=== PATIENT | male | born 1960 | race Caucasian/White ===

== ENCOUNTER 2024-03-01 17:25 | Inpatient (IN) | payer MEDICARE, OTHER, MEDICAID, SELFPAY ==
[2024-03-01 10:17] VITALS: BP 142/87
--- NOTE | 2024-03-01 10:54 | ED.GENMED ---
History of Present Illness
General
Chief Complaint: Crisis Evaluation
Source: patient
Exam Limitations: none
Time Seen by Provider: 03/01/24 10:51
Nursing documentation reviewed up to this point in time: agreed with
History of Present Illness
History of Present Illness:
Patient is 63-year-old male with history of schizophrenia. Patient is a resident of the [facility]. It is documented that he does have a history of reflux. Staff reports that patient was complaining of chest and epigastric
pain yesterday and only had cereal in the morning and refused to eat since. Patient tells me it feels like reflux and he did vomit because of this. It is documented that he does have a history of reflux and is on omeprazole 40 mg once by mouth
every day before breakfast.
Patient denies symptoms now. Patient has no cardiac history . Denies any shortness of breath.
Past History
Past History
ED Past Medical History: Psychiatric (schizophrenia) and Other (Borderline diabetes, GERD, schizoaffective disorder)
ED Past Surgical History: None
Social History
Tobacco: Smoker
Alcohol: None
Drug: None
Personal: Single
Living: other (halfway)
Employment: Not employed
Family History
Family History: CAD
Review of Systems
Review of Systems
Allergies reviewed?: Yes
Other source history: other (Staff from facility )
All Other Systems: ROS reviewed and negative except as documented in HPI and ROS
Constitutional: Reports no symptoms
Respiratory: Denies trouble breathing
Cardiac: Reports other (chest /epigastric pain yesterday now resolved )
ABD/GI: Reports abdominal pain (epigastric pain n/v/ x 1 yesterday ) and vomiting
: Reports no symptoms
Musculoskeletal: Reports no symptoms
Phy Exam
General Physical Exam
General Presentation: no apparent distress
General age: appears stated age
General Skin: warm and dry
General Habitus: normal
General Mental: alert
General Hydration: appears well hydrated
Cardiovascular Exam
Cardiovascular Exam: regular rate/rhythm, no murmur and normal peripheral pulses
Pulmonary Exam
Pulmonary Exam: lungs clear and no respiratory distress
Neurological Exam
Neurological Exam: alert and oriented x3
Musculoskeletal Exam
Musculoskeletal Exam: full ROM
Skin Exam
Skin Exam: normal color and warm/dry
Psychiatric Exam
Psychiatric Exam: anxious
Course
Orders/Labs/Results
Orders:
Orders
03/01/24 10:20
Electrocardiogram (*1) Urgent
Reason for Study: Abdominal Pain
03/01/24 10:21
EKG- Treatment ONCE
03/01/24 11:00
Cardiac Monitoring- Treatment ONCE
IV Insert/Care/Rem.- Treatment PRN
CR Chest - 2 Views Urgent
Comment:
Reason For Exam: cp
03/01/24 11:33
Complete Blood Count/With Diff Urgent
Comprehensive Metabolic Panel Urgent
Serum Osmolality Urgent
Comment: ADD ON
Troponin I Urgent
03/01/24 12:42
Add On- LAB Urgent
Tests Added?: serum osmolality
03/01/24 12:43
UA Reflex to Culture [Urinalysis Reflex To Culture] Urgent
Date Specimen was Collected: 03/01/24
Time Specimen was Collected: 12:54
Urine Osmolality Random [Osmolality, Random Urine] Urgent
Date Specimen was Collected: 03/01/24
Time Specimen was Collected: 12:54
Urine Sodium Urgent
Date Specimen was Collected: 03/01/24
Time Specimen was Collected: 12:54
Abnormal Lab Results
03/01/24
11:33
RBC 4.26 L 10^6/uL
(4.70-6.10)
Hct 36.5 L %
(39.0-52.0)
MCH 31.7 H pg
(27.0-31.0)
Absolute Lymphs (auto) 1.0 L 10^3/uL
(1.2-3.4)
Neutrophils % 77.4 H %
(42.2-75.2)
Lymphocytes % 13.4 L %
(20.5-51.1)
Sodium 121 L mmol/L
(135-145)
Chloride 87 L mmol/L
(98-107)
BUN 8 L mg/dl
(9-20)
Creatinine 0.5 L mg/dL
(0.7-1.3)
03/01/24 11:33
03/01/24 11:33
Vital Signs
Initial and Last Documented VS:
Initial Vital Signs
Temp Pulse Resp BP Pulse Ox
97.7 F 87 17 142/87 99
03/01/24 10:17 03/01/24 10:17 03/01/24 10:17 03/01/24 10:17 03/01/24 10:17
Last Documented Vital Signs
Temp Pulse Resp BP Pulse Ox
97.7 F 99 18 143/88 98
03/01/24 10:17 03/01/24 12:33 03/01/24 12:33 03/01/24 12:33 03/01/24 12:33
MDM/Problems Addressed
Differential Diagnosis Includes:
Not limited to reflux, less likely unstable angina
MDM/Problems Addressed:
Patient is a 63-year-old male from local detention sent for staff for evaluation. Patient complained of reflux, chest discomfort yesterday and only had a bowl of cereal but did not eat throughout the day. Patient arrives awake alert he has no
complaints presently. No acute findings on EKG cardiac troponin negative however incidentally patient was found to have a low sodium of 121. This is new in comparison to prior labs. no c/o of fever/chills. neg chest xray. neg troponin no acute
findings on EKG.
Staff reports that pt drinks a lot of water.
Discussed with Dr. Dodd who eval pt. pt is very restless pulled IV line out. new IV ordered. per nephrology will hold off on hypertonic saline. water restrict and diet.
*Radiology
Radiology exam reviewed: radiology read reviewed
*Pulse Oximetry
Patient hypoxic: no
*EKG
Interpreted by ED Provider?: Yes
Interpretation: normal
Comparison EKG: no comparison EKG present
Heart Rate: 99
Rate: normal
Rhythm: sinus
Ischemia: non-specific ST changes
*Critical Care Note
Total Time (30-74mins, 75-104mins- exclusive of procedures): Not Applicable
Patient Management
Discussion with other providers: Product Demonstrator (Dr Dodd )
ED Attending Note
-
Portions of this chart may have been created with voice recognition software.� Occasional wrong word or��sound alike� substitutions may have occurred due to the inherent limitations of voice recognition software.
Discharge Plan
Departure
Patient Disposition: Admit
Date of Disposition: 03/01/24
Time of Disposition: 13:30
Admit to: Telemetry
Admit to doctor: hospitalist
Presentation/result/management discussed w/ accepting MD/DO: Hospitalist
Patient with high blood pressure during this ER visit?: Yes
Condition: Fair
Covid-19: Not Applicable
Discharge Problem:
Chest pain, Acute hyponatremia
Prescriptions:
No Action
famotidine [Acid Controller] 20 MG tablet
20 mg PO DAILY
olanzapine [Zyprexa] 20 MG tablet
20 mg PO QPM
olanzapine [Zyprexa] 20 MG tablet
10 mg PO DAILY
buspirone [BuSpar] 15 MG tablet
15 mg PO BID
lorazepam 1 MG tablet
1 mg PO BID PRN (Reason: anxiety)
Referrals:
Porrino,Jaylon., DO [Family Provider] -
Interventions
Interventions:
*Risk Screen - Suicide Last Done: 03/01/24 11:21
*General Assessment Last Done: 03/01/24 11:21
*Neglect/Abuse Screening Last Done: 03/01/24 11:21
ED- Fall Risk Assessment Last Done: 03/01/24 11:23
*ED COVID-19 Vaccine History Last Done: 03/01/24 11:21
ED-Psychological Assessment Last Done: 03/01/24 11:23
Discharge Date and Time
Print Language: TONGAN
[2024-03-01 11:46] LABS: % Basophils 0.3 % (0-2); % Eosinophils 0.4 % (0-6); % Immature Granulocytes 0.3 % (0-0.5); % Lymphocytes 13.4 % (20.5-51.1); % Monocytes 8.2 % (1.7-9.3); % Neutrophils 77.4 % (42.2-75.2); Absolute Monocytes 0.6 10^3/uL (0.1-0.6); Absolute Neutrophils 5.7 10^3/uL (1.4-6.5); Hematocrit 36.5 % (39.0-52.0); Hemoglobin 13.5 g/dL (13.0-18.0); Mean Corpuscular Hgb 31.7 pg (27.0-31.0); Mean Corpuscular Volume 85.7 fL (80.0-94.0); Mean Platelet Volume 10.2 fL (7.4-10.4); Nucleated Red Blood Cells % 0 % (-); Platelet Count 316 10^3/uL (130-400); Red Blood Cell Count 4.26 10^6/uL (4.70-6.10); Red Cell Dist. Width 11.7 % (11.5-14.5); White Blood Cell Count 7.4 10^3/uL (4.8-10.8)
[2024-03-01 12:02] LABS: ALT (SGPT) 20 U/L (0-50); AST (SGOT) 33 U/L (17-59); Albumin 4.7 g/dl (3.5-5.0); Alkaline Phosphatase 91 U/L (38-126); Blood Urea Nitrogen 8 mg/dl (9-20); Calcium 9.3 mg/dl (8.4-10.2); Carbon Dioxide 24 mmol/L (22-30); Chloride 87 mmol/L (98-107); Glucose 92 mg/dl (70-99); Potassium 4.1 mmol/L (3.5-5.1); Sodium 121 mmol/L (135-145); Total Bilirubin 1.1 mg/dl (0.2-1.3); Total Protein 6.6 g/dl (6.3-8.2); eGFR > 60.00
[2024-03-01 12:09] LABS: Troponin I < 0.012 ng/ml
[2024-03-01 12:33] VITALS: BP 143/88
--- NOTE | 2024-03-01 13:27 | W.CON.NEPH ---
Consultation
-
Date/Time Consultation Requested: March 01, 2024 12 PM
Date/Time Consultation Performed: March 01, 2024 1 PM
Requesting Provider: Dr. Armenta
Performing Provider: Dr. Dodd
Medical History
-
Chief Complaint: Chest pain refusal to eat
History of Present Illness:
This is a 63-year-old gentleman who has schizophrenia on multiple medications. He resides at [facility]. In the last 6 months he began having reflux symptoms. He had taken Maalox and other [id number] treatments which are
only modestly helped. This had apparently worsened yesterday with some more chest pain and he had then refused to eat since that point. His last documented food was some cereal yesterday morning. He does drink a lot of water per day on a typical
basis according to the staff he drinks close to 5 or 6 L/day. The patient is unable to quantify how much fluid he drinks. Because of his current symptoms and refusal to eat he was brought to the emergency room for evaluation. Here his sodium
level was noted to be 121. He did pull his IV out while in the emergency room. He was pacing in the room when he was seen.
Past Medical History
Schizophrenia
Reflux
Social History
Tobacco: Smoker
Alcohol: None
Family History
Family History: Not Pertinent and CAD
Allergies / Home Medications
Allergy/AdvReac Type Severity Reaction Status Date / Time
clozapine Allergy Unknown Verified 03/01/24 10:19
fluphenazine enanthate Allergy Unknown Verified 03/01/24 10:19
[From Prolixin]
fluphenazine HCl Allergy Unknown Verified 03/01/24 10:19
[From Prolixin]
haloperidol [From Haldol] Allergy drooling Verified 03/01/24 10:19
haloperidol lactate Allergy drooling Verified 03/01/24 10:19
[From Haldol]
�Medication �Instructions �Recorded �Confirmed �Type
buspirone 15 mg tablet (BuSpar) 15 mg PO BID 09/04/20 09/04/20 History
famotidine 20 mg tablet (Acid 20 mg PO DAILY 09/04/20 09/04/20 History
Controller)
lorazepam 1 mg tablet 1 mg PO BID PRN anxiety 09/04/20 History
olanzapine 20 mg tablet (Zyprexa) 10 mg PO DAILY 09/04/20 09/04/20 History
olanzapine 20 mg tablet (Zyprexa) 20 mg PO QPM 09/04/20 09/04/20 History
Review of Systems
-
Reflux, epigastric discomfort
All other systems: Negative unless noted
Physical Exam
Vital Signs
Vital Signs
Temp Pulse Resp BP Pulse Ox
97.7 F 99 18 143/88 98
03/01/24 10:17 03/01/24 12:33 03/01/24 12:33 03/01/24 12:33 03/01/24 12:33
Lab Results
WBC 7.4 10^3/uL (4.8-10.8) 03/01/24 11:33
RBC 4.26 10^6/uL (4.70-6.10) L 03/01/24 11:33
Hgb 13.5 g/dL (13.0-18.0) 03/01/24 11:33
Hct 36.5 % (39.0-52.0) L 03/01/24 11:33
Plt Count 316 10^3/uL (130-400) 03/01/24 11:33
Sodium 121 mmol/L (135-145) L 03/01/24 11:33
Potassium 4.1 mmol/L (3.5-5.1) 03/01/24 11:33
Chloride 87 mmol/L (98-107) L 03/01/24 11:33
Carbon Dioxide 24 mmol/L (22-30) 03/01/24 11:33
BUN 8 mg/dl (9-20) L 03/01/24 11:33
Creatinine 0.5 mg/dL (0.7-1.3) L 03/01/24 11:33
eGFR > 60.00 03/01/24 11:33
Glucose 92 mg/dl (70-99) 03/01/24 11:33
Calcium 9.3 mg/dl (8.4-10.2) 03/01/24 11:33
Albumin 4.7 g/dl (3.5-5.0) 03/01/24 11:33
Physical Exam
Patient is awake alert oriented and in no distress. Mood and affect were pleasant, insight and judgment were good. Pupils are equal round and reactive to light, extraocular movements are intact, sclera were anicteric. Hearing was normal, ears and
nose are intact. Oropharynx was clear. Neck was supple with trachea midline and no thyromegaly. Heart was regular rate and rhythm without rubs. Lower extremities without edema. Lungs were clear to auscultation bilaterally and with normal
excursion. Abdomen was soft, nontender, with normal active bowel sounds, and no hepatosplenomegaly. Skin was without rash and with normal turgor.
Data Reviewed
-
Medical Tests (Nuc Med, Echo etc): Image Personally Visualized and interpreted (EKG on 03/01/2024 by my read shows normal sinus rhythm septal Q nonspecific T wave lateral)
Labs: Labs Reviewed by me (Hemoglobin 13.5, sodium 121, chloride 87, creatinine 0.5)
Old Records: Reviewed (On January 29, 2021 sodium 137)
Assessment/Plan
-
Assessment
Hyponatremia
Schizophrenia
Reflux
Poor oral intake
Plan
Fluid restriction 48 ounces per day
Increase solute intake
If necessary can use salt tablets
I do not believe he will tolerate maintain IV for hypertonic saline
Await urine studies if he will provide it
Follow BMP
Discussed with accompanying staff from his facility.
[2024-03-01 14:07] LABS: Osmolality Serum 251 mOsm/kg (275-300)
[2024-03-01] MEDS: ATIVAN 0.5 MG IV (14:14)
--- NOTE | 2024-03-01 16:52 | CM ---
Patient seen at bedside with physician, patient mother and caregiver. Patient states that he lives at [facility] and per caregiver he smokes daily. Patient mother indicated that patient has been there since 08/25/23 and that he plans to return.
Patient is independently ambulatory and uses no assistive devices. Patient does not normally have a 1:1 at the facility but he does like to keep moving/walking. Patient PCP is Dr. Flood and he uses the [facility] pharmacy. CM will try to reach
[facility] for clarification of prior level of care. Patient caregiver stated he would come to take patient home when discharged. CM will continue to follow for discharge planning needs.
Plan; home with VN to [facility] vs home with no needs.
--- NOTE | 2024-03-01 17:02 | HPS.HSE ---
Addendum entered and electronically signed by Denice Neri MD 03/01/24 19:58:
I personally performed a history and physical exam of the patient and discussed management with the resident. I reviewed the resident's note and agree with the documented findings and plan of care HPI/CC as noted by Dr. Mullen.
GENERAL: thin cachectic male in no apparent distress
HEENT: NC/AT
HEART: regular rate and rhythm, +S1, +S2
LUNGS : clear to auscultation bilaterally
ABDOM: soft, nontender, nondistended, + bowel sounds
EXT: no cyanosis, clubbing, or edema
NEUROLOGIC: grossly intact--pacing about the room unable to sit still
PSYCH: calm, answered questions--pacing about the room, cannot sit still
midepigastric abdominal pain--likely GERD symptoms, doubt pancreatitis or cholelithiasis/biliary colic, doubt anginal equivalent--ADMIT--troponin and EKG WNL--check lipase--cont PPI--consult GI
hyponatremia--appears euvolemic--likely SIADH (possibly from psych meds) BUT could be water intoxication with pt drinking only water sometimes up to 15 bottles per day (500ml bottles)--consult renal-check urine and serum osmolality, check urine
sodium--fluid restriction to 48 oz and hold on hypertonic saline for now
schizophrenia -- calm--no behaviors--cont seroquel, haldol--consider psych consult
smoking--12 cigs/day--nicotine patch
DVT proph--low risk, ambulating
code status -- FULL CODE
Original Note:
Family Physician
-
Family Physician: Angel Villegas
Chief Complaint
-
Epigastric pain, nonbloody vomiting, limited oral intake
History of Present Illness
Patient lives in facility [facility]]; source of history: patient, caregiver, patient's mother.
Last documented food was yesterday when he had cereal for breakfast. After that he had an episode of nonbloody vomiting (throwing up mainly fluids) and stared having epigastric pain from that time. His pain did not radiate, was not positional or
exertional, was not associated with difficulty breathing but got worse with eating. He does not report chills or cold sweats since yesterday. His last bowel movement was yesterday which was not bloody. After his vomiting he did not have oral
intake. He does report a history of reflux from 6 months ago which he has been taking Maalox and OTC drugs with slight improvement. Patient's mother reports increased frequency of urinating from about a month ago and drinking a lot of water which
sometimse goes up to 10-15 small bottles of water.
Medical History
Past Medical History
Past Medical History: Reports GERD and Psychiatric (Schizophrenia)
Past Surgical History: Reports None
Social History
Tobacco: Smoker
Alcohol: None
Drug: None
Living: Assisted Living
Employment: Not Employed
Family History
Family History: CAD
Allergies / Home Medications
Allergies reflects when Allergies were last updated in [facility].
Home Medications with original date entered in [facility]
Allergy/Medication List:
Allergies: Clozapine, fluphenazine
Medications: Buspirone, famotidine, lorazepam, olanzapine, quetiapine, Haldol, trazodone
Review of Systems
-
History Source: Patient, Family and Other
A 12 point ROS was completed and negative except as noted: Yes
Abdomen/GI: Reports Abdominal Pain, Vomiting and Anorexia
: Reports Frequency
Musculoskeletal: Reports Muscle Pain
Endocrine: Reports Polyuria and Polydipsia
Physical Exam
Vital Signs
Vital Signs
Temp Pulse Resp BP Pulse Ox
97.7 F 99 20 143/88 98
03/01/24 10:17 03/01/24 12:33 03/01/24 14:10 03/01/24 12:33 03/01/24 12:33
Physical Exam
General: Well Developed and Well Nourished
HEENT: NormoCephalic and Moist mucous membranes
Respiratory: Clear
Cardiac: S1/S2 and Regular Rhythm
GI: Soft, Non Tender, Non Distended, Normal Bowel Sounds and No Hepatosplenomegaly
Rectal: Brown
Genito-urinary: No costovertebral tender
Musculoskeletal: No Clubbing, No Cyanosis and No Edema
Skin: Warm and Dry
Neuro: Awake, Alert, Oriented, No Motor Deficits and No Sensory Deficits
Hematologic/Lymphatic: No Lymphadenopathy
Psych: Agitated
Laboratory Results
-
03/01/24 11:33
03/01/24 11:33
Laboratory Results
Total Bilirubin 1.1 mg/dl (0.2-1.3) 03/01/24 11:33
AST 33 U/L (17-59) 03/01/24 11:33
ALT 20 U/L (0-50) 03/01/24 11:33
Alkaline Phosphatase 91 U/L (38-126) 03/01/24 11:33
Troponin I < 0.012 ng/ml 03/01/24 11:33
Data Reviewed
-
Critical Care Time (in minutes): 90
Impression/Plan
-
IMPRESSION:
Problem #1: Assess possibility of stable Angina--- EKG done in ED: normal, troponin negative
Problem #2: Assess possibility of pancreatitis
Problem #3: GERD
Problem #3: Euvolemic hyponatremia
Problem #4: Smoking
PLAN:
Check lipase
Start Hypertonic (3%) saline
Limit fluids
I/O every 12 hours
Blood chemistry every 4 hours
Renal consult
GI consult
Urine culture pending
Urine analysis pending
Urinary sodium, urine osmolality pending
Nicotine patch
OT PT consult
Consider Medsitter
Possibly consider psych consult
--- NOTE | 2024-03-01 17:33 | CON.GI ---
Consultation
-
Date/Time Consultation Performed: 02/29/24
Performing Provider: Gianluca Villaseñor MD
Reason for Consultation: abdominal pain
Medical History
Chief Complaint / HPI
Chief Complaint: abdominal pain
History of Present Illness:
The patient is a 63-year-old male with past medical history as noted who presents to the emergency room with pain with eating. The history is obtained with him and his mother. Longstanding history of schizophrenia, and by report heartburn. By
report he has been having discomfort after eating, and had episode of vomiting, and since then has declined to eat. He is tolerating his secretions without difficulty. He denies any exertional symptoms. He denies any fevers or chills. The
history is somewhat difficult, though per his mother his food intake has been different given his mentation. He does drink a lot of water, sometimes up to 10-15 small bottles of water a day. Upon presentation he was found to be significantly
hyponatremic.
Past Medical History
Past Medical History: Other (Schizophrenia Reflux)
Social History
Tobacco: Smoker
Alcohol: None
Family History
Family History: Reviewed & Not Pertinent
Allergies / Home Medications
Allergy/AdvReac Type Severity Reaction Status Date / Time
clozapine Allergy Unknown Verified 03/01/24 10:19
fluphenazine enanthate Allergy Unknown Verified 03/01/24 10:19
[From Prolixin]
fluphenazine HCl Allergy Unknown Verified 03/01/24 10:19
[From Prolixin]
haloperidol [From Haldol] Allergy drooling Verified 03/01/24 10:19
haloperidol lactate Allergy drooling Verified 03/01/24 10:19
[From Haldol]
�Medication �Instructions �Recorded
acetaminophen 500 mg tablet 1,000 mg PO TIDPRN PRN mild pain 03/01/24
(Tylenol Extra Strength)
aluminum-mag hydroxide-simethicone 15 ml PO DAILYPRN PRN gerd 03/01/24
200 mg-200 mg-20 mg/5 mL oral susp
(Laura-Lanta)
benztropine 1 mg tablet 1 mg PO BID 03/01/24
calcium polycarbophil 625 mg 635 mg PO BID 03/01/24
tablet (Fiber-Lax)
cholecalciferol (vitamin D3) 25 25 mcg PO DAILY 03/01/24
mcg (1,000 unit) tablet (Vitamin
D3)
haloperidol 5 mg tablet 5 mg PO BID 03/01/24
hydroxyzine HCl 50 mg tablet 50 mg PO BIDPRN PRN anxiety 03/01/24
omeprazole 40 mg capsule,delayed 40 mg PO DAILY 03/01/24
release
polyethylene glycol 3350 17 gram 17 g PO DAILYPRN PRN constipation 03/01/24
oral powder packet (Miralax)
quetiapine 300 mg tablet (Seroquel) 600 mg PO HS 03/01/24
quetiapine 50 mg tablet 50 mg PO BID 03/01/24
quetiapine 50 mg tablet (Seroquel) 50 mg PO BIDPRN PRN anxiety 03/01/24
trazodone 100 mg tablet 100 mg PO HS 03/01/24
Review of Systems
-
All other systems: A 12 pt ROS was Negative except as stated above in HPI
Vital Signs
Temp Pulse Resp BP Pulse Ox
97.7 F 99 20 143/88 98
03/01/24 10:17 03/01/24 12:33 03/01/24 14:10 03/01/24 12:33 03/01/24 12:33
Physical Exam
Results
WBC 7.4 10^3/uL (4.8-10.8) 03/01/24 11:33
Hgb 13.5 g/dL (13.0-18.0) 03/01/24 11:33
Hct 36.5 % (39.0-52.0) L 03/01/24 11:33
MCV 85.7 fL (80.0-94.0) 03/01/24 11:33
Plt Count 316 10^3/uL (130-400) 03/01/24 11:33
Absolute Neuts (auto) 5.7 10^3/uL (1.4-6.5) 03/01/24 11:33
Sodium 121 mmol/L (135-145) L 03/01/24 11:33
Potassium 4.1 mmol/L (3.5-5.1) 03/01/24 11:33
Chloride 87 mmol/L (98-107) L 03/01/24 11:33
Carbon Dioxide 24 mmol/L (22-30) 03/01/24 11:33
BUN 8 mg/dl (9-20) L 03/01/24 11:33
Creatinine 0.5 mg/dL (0.7-1.3) L 03/01/24 11:33
Calcium 9.3 mg/dl (8.4-10.2) 03/01/24 11:33
Total Bilirubin 1.1 mg/dl (0.2-1.3) 03/01/24 11:33
AST 33 U/L (17-59) 03/01/24 11:33
ALT 20 U/L (0-50) 03/01/24 11:33
Alkaline Phosphatase 91 U/L (38-126) 03/01/24 11:33
Diagnostic Image Results:
Prior GI Procedures:
EGD:
Colonoscopy:
Assessment / Plan
-
1. Epigastric pain: With underlying history of heartburn, and some dyspeptic symptoms, less likely biliary colic, again difficult to quantify given his history. His exam is benign, as well as labs except for significant hyponatremia. At this
point we will continue supportive care, PPI. Will check ultrasound again biliary colic seems less likely. Pending his clinical course may plan EGD on Wednesday if no changes. I discussed this with his mother at length.
-
-
Thank you for consultation and allowing me to participate in the patient's care. Please call the agronomy professor GI physician during the after hours with any questions or concerns.
[2024-03-01 17:45] VITALS: BMI 19.5
[2024-03-01 17:58] VITALS: BP 139/82
[2024-03-01 19:00] VITALS: BP 130/78
[2024-03-01 19:21] LABS: Blood Urea Nitrogen 9 mg/dl (9-20); Calcium 9.4 mg/dl (8.4-10.2); Carbon Dioxide 27 mmol/L (22-30); Chloride 88 mmol/L (98-107); Estimated Creatinine Clearance 107 ml/min; Glucose 107 mg/dl (70-99); Potassium 3.8 mmol/L (3.5-5.1); Sodium 124 mmol/L (135-145); eGFR > 60.00
[2024-03-01] MEDS: COGENTIN 1 MG PO (20:51)
[2024-03-01] MEDS: SEROQUEL 600 MG PO (20:51)
[2024-03-01] MEDS: HALDOL 5 MG PO (20:51)
[2024-03-01] MEDS: DESYREL 100 MG PO (20:51)
[2024-03-01] MEDS: FIBERCON 625 MG PO (20:52)
[2024-03-01] MEDS: SEROQUEL 50 MG PO (20:52)
[2024-03-01 22:04] LABS: Blood Urea Nitrogen 10 mg/dl (9-20); Calcium 9.3 mg/dl (8.4-10.2); Carbon Dioxide 27 mmol/L (22-30); Chloride 91 mmol/L (98-107); Estimated Creatinine Clearance 107 ml/min; Glucose 115 mg/dl (70-99); Potassium 3.7 mmol/L (3.5-5.1); Sodium 125 mmol/L (135-145); eGFR > 60.00
[2024-03-01 22:42] LABS: Urine Albumin Negative (Neg - Trace); Urine Bilirubin Negative (Negative); Urine Character Clear (Clear); Urine Color Yellow; Urine Glucose Negative (Negative); Urine Ketone 1+ (Negative); Urine Leukocyte Negative (Negative); Urine Nitrite Negative (Negative); Urine Occult Blood Negative (Negative); Urine Urobilinogen Negative (Neg - 1+)
[2024-03-01 22:49] LABS: Osmolality Urine 171 mOsm/kg (300-900)
[2024-03-01 23:00] VITALS: BP 106/57
[2024-03-01 23:11] LABS: Urine Sodium 5 mmol/L (30-90)
[2024-03-02 03:00] VITALS: BP 111/70
[2024-03-02 06:00] VITALS: BMI 18.9
[2024-03-02 07:39] LABS: Hematocrit 37.6 % (39.0-52.0); Hemoglobin 13.6 g/dL (13.0-18.0); Mean Corp Hgb Conc. 36.2 g/dL (33.0-37.0); Mean Corpuscular Hgb 31.6 pg (27.0-31.0); Mean Corpuscular Volume 87.4 fL (80.0-94.0); Mean Platelet Volume 10.1 fL (7.4-10.4); Platelet Count 274 10^3/uL (130-400); Red Cell Dist. Width 11.8 % (11.5-14.5); White Blood Cell Count 4.7 10^3/uL (4.8-10.8)
[2024-03-02 07:49] VITALS: BP 104/61
[2024-03-02 07:57] LABS: ALT (SGPT) 19 U/L (0-50); AST (SGOT) 34 U/L (17-59); Albumin 4.3 g/dl (3.5-5.0); Alkaline Phosphatase 74 U/L (38-126); Blood Urea Nitrogen 7 mg/dl (9-20); Calcium 9.3 mg/dl (8.4-10.2); Carbon Dioxide 30 mmol/L (22-30); Chloride 96 mmol/L (98-107); Estimated Creatinine Clearance 104 ml/min; Glucose 87 mg/dl (70-99); Lipase 62 U/L (23-300); Magnesium 2.1 mg/dl (1.6-2.3); Sodium 132 mmol/L (135-145); Total Protein 6.2 g/dl (6.3-8.2); eGFR > 60.00
--- NOTE | 2024-03-02 08:05 | W.PN.GI.CBS2 ---
Today's Communication / Plan
-
Please see assessment and plan for details.
Assessment / Plan
-
1. Epigastric pain: With underlying history of heartburn, and some dyspeptic symptoms, less likely biliary colic, again difficult to quantify given his history, questionable dysphagia/odynophagia also. His exam is benign, as well as labs except
for significant hyponatremia which is improved. At this point we will continue supportive care, PPI. Will await ultrasound again biliary colic seems less likely. Will plan EGD tomorrow. I discussed this with his mother at length yesterday.
Subjective
Subjective
Date of Service: March 02, 2024
Patient feeling okay, denies any abdominal pain, states ate dinner, which was confirmed with nursing.
Objective
Data Reviewed
Laboratory Data:
Laboratory Results
03/02/24 07:02
03/02/24 07:02
Laboratory Results
Magnesium 2.1 mg/dl (1.6-2.3) 03/02/24 07:02
Total Bilirubin 1.0 mg/dl (0.2-1.3) 03/02/24 07:02
AST 34 U/L (17-59) 03/02/24 07:02
ALT 19 U/L (0-50) 03/02/24 07:02
Alkaline Phosphatase 74 U/L (38-126) 03/02/24 07:02
Lipase 62 U/L (23-300) 03/02/24 07:02
Vital Signs and I&O:
Vital Signs
Temp Pulse Resp BP Pulse Ox
97.5 F 99 16 104/61 95
03/02/24 07:49 03/02/24 07:49 03/02/24 07:49 03/02/24 07:49 03/02/24 07:49
Physical Exam
Physical Exam
General: NAD
Abdomen: normal bowel sounds, soft, no tenderness, no masses or bruits, no ascites
[2024-03-02 08:26] LABS: TSH 1.14 uIU/ml (0.47-4.68)
[2024-03-02] MEDS: NICODERM TRANSDERMAL 14 MG TRANSDERM (08:35)
[2024-03-02] MEDS: HALDOL 5 MG PO ×2 (08:35→20:55)
[2024-03-02] MEDS: COGENTIN 1 MG PO ×2 (08:35→20:55)
[2024-03-02] MEDS: VITAMIN D3 (cholecalciferol) 25 MCG PO (08:35)
[2024-03-02] MEDS: FIBERCON 625 MG PO ×2 (08:35→20:55)
[2024-03-02] MEDS: SEROQUEL 50 MG PO ×2 (08:35→20:55)
[2024-03-02] MEDS: PROTONIX 40 MG PO (08:35)
--- NOTE | 2024-03-02 10:28 | PTCARENOTE ---
Dr Neri aware that pt continues to take himself off of the security monitor. Stated tele can be removed and she will place an order for med surg. Med sitter continues at bedside. Pt OOB walking around room but does not come out in to the
hallway. Pt denies pain. Call crawford in reach.
[2024-03-02 11:03] VITALS: BMI 18.9
--- NOTE | 2024-03-02 11:51 | W.PN.NEPH.PH ---
Today's Communication / Plan
-
sodium up to 132
maintain fluid restriction
Assessment/Plan
-
Assessment
Hyponatremia
Schizophrenia
Reflux
Poor oral intake
Plan
Fluid restriction 48 ounces per day
Increase solute intake
sodium up to 132
If necessary can use salt tablets
I do not believe he will tolerate maintain IV for hypertonic saline
urine osm of 171 not consistent with SIADH, likely due to poor solute intake and fluid ingestion
Follow BMP
Discussed with accompanying staff from his facility.
-
-
Date of Service: March 02, 2024
CC / HPI / ROS
-
Chief Complaint:
Hyponatremia
History of Present Illness:
sodium up to 132 with FR
ghemodynamically stable
Review of Systems:
non 0liguric
Labs
-
Labs:
WBC 4.7 10^3/uL (4.8-10.8) L 03/02/24 07:02
RBC 4.30 10^6/uL (4.70-6.10) L 03/02/24 07:02
Hgb 13.6 g/dL (13.0-18.0) 03/02/24 07:02
Hct 37.6 % (39.0-52.0) L 03/02/24 07:02
Plt Count 274 10^3/uL (130-400) 03/02/24 07:02
Sodium 132 mmol/L (135-145) L 03/02/24 07:02
Potassium 4.0 mmol/L (3.5-5.1) 03/02/24 07:02
Chloride 96 mmol/L (98-107) L 03/02/24 07:02
Carbon Dioxide 30 mmol/L (22-30) 03/02/24 07:02
BUN 7 mg/dl (9-20) L 03/02/24 07:02
Creatinine 0.6 mg/dL (0.7-1.3) L 03/02/24 07:02
eGFR > 60.00 03/02/24 07:02
Glucose 87 mg/dl (70-99) 03/02/24 07:02
Calcium 9.3 mg/dl (8.4-10.2) 03/02/24 07:02
Albumin 4.3 g/dl (3.5-5.0) 03/02/24 07:02
Physical Exam
-
Vital Signs:
Vital Signs
Temp Pulse Resp BP Pulse Ox
97.5 F 99 16 104/61 95
03/02/24 07:49 03/02/24 07:49 03/02/24 07:49 03/02/24 07:49 03/02/24 07:49
Cardiovascular:: Regular rate and rhythm
Respiratory:: Bilateral: CTA
Lung Excursion:: Normal
Abdomen:: Nontender
Bowel Sounds:: Normal
Extremity Edema:: None: Bilateral:
Mann Catheter: No
--- NOTE | 2024-03-02 12:13 | W.PN.HOSP.TC ---
Addendum entered and electronically signed by Denice Neri MD 03/02/24 12:59:
I saw and evaluated the patient independently. I reviewed the resident�s note and agree with findings and plan as documented by Dr. Mullen.
GENERAL: thin cachectic male in no apparent distress
HEENT: NC/AT
HEART: regular rate and rhythm, +S1, +S2
LUNGS : clear to auscultation bilaterally
ABDOM: soft, nontender, nondistended, + bowel sounds
EXT: no cyanosis, clubbing, or edema
NEUROLOGIC: grossly intact
midepigastric abdominal pain--likely GERD symptoms, doubt pancreatitis or cholelithiasis/biliary colic, doubt anginal equivalent---troponin and EKG WNL--lipase WNL--cont PPI--apprec GI
hyponatremia--appears euvolemic--likely SIADH (possibly from psych meds) BUT could be water intoxication with pt drinking only water sometimes up to 15 bottles per day (500ml bottles)--apprec renal- urine and serum osmolality noted--urine sodium
5--cont fluid restriction to 48 oz
schizophrenia -- calm--no behaviors--cont seroquel, haldol
smoking--12 cigs/day--nicotine patch
DVT proph--low risk, ambulating
code status -- FULL CODE
Original Note:
Today's Communication/Plan
-
Continue to monitor sodium levels--fluid restriction--transfer to Med/Surg
Assessment / Plan
Assessment / Plan
pt is 63-yr-old
Epigastric pain with underlying history of heartburn, hyponatremia upon lab evaluation
Apprec GI consult-- Continue supportive care, PPI, may plan for EGD on Wednesday--Apprec nephro consult-- Continue fluid restriction 48 ounces per day, Increase solute intake, if necessary use salt tablets, apprec OT/PT consult
Improving trend of sodium level (132)--- continue to monitor
Anticipated Discharge: 24 - 48 hours
Subjective/Interval History
-
Date of Service: March 02, 2024
Patient is alert and awake. He is calm and not in distress. He mentions he is feeling a bit cold. Epigastric pain has improved.
Objective Data
-
Labs:
Laboratory Results
03/02/24
07:02
WBC 4.7 L
Hgb 13.6
Hct 37.6 L
Plt Count 274
Sodium 132 L
Potassium 4.0
Chloride 96 L
Carbon Dioxide 30
BUN 7 L
Creatinine 0.6 L
Glucose 87
Calcium 9.3
Total Bilirubin 1.0
AST 34
ALT 19
Alkaline Phosphatase 74
Vital Signs:
Vital Signs
Temp Pulse Resp BP Pulse Ox
97.5 F 99 16 104/61 95
03/02/24 07:49 03/02/24 07:49 03/02/24 07:49 03/02/24 07:49 03/02/24 07:49
Review of Systems
-
History Source: Patient
All other systems: Reviewed and negative
Physical Exam
-
General: Well Developed and No Apparent Distress
HEENT: Normocephalic and Atraumatic
Respiratory: Clear to Auscultation
Cardiac: Regular Rhythm and S1/S2
GI: Soft, Nontender, Nondistended, Normal Bowel Sounds and No Hepatosplenomegaly
Rectal: Brown
Genito-urinary: No Costovertebral Tender
Musculoskeletal: No Clubbing, No Cyanosis and No Edema
Skin: Warm
Neuro: Awake, Alert and Oriented
Hematologic / Lymphatic: No Lymphadenopathy
Psych: Calm
Data Reviewed
-
Total Time Spent with Patient (in minutes): 40
[2024-03-02 15:00] VITALS: BP 119/81
[2024-03-02] MEDS: DESYREL 100 MG PO (20:54)
[2024-03-02] MEDS: SEROQUEL 600 MG PO (20:55)
[2024-03-02 23:20] VITALS: BP 119/81
[2024-03-03 05:24] VITALS: BMI 19.2
[2024-03-03 07:00] VITALS: BP 132/84
[2024-03-03] MEDS: COGENTIN 1 MG PO ×2 (08:11→19:45)
[2024-03-03] MEDS: FIBERCON 625 MG PO ×2 (08:11→19:45)
[2024-03-03] MEDS: PROTONIX 40 MG PO (08:11)
[2024-03-03] MEDS: VITAMIN D3 (cholecalciferol) 25 MCG PO (08:11)
[2024-03-03] MEDS: SEROQUEL 50 MG PO ×2 (08:11→19:48)
[2024-03-03] MEDS: HALDOL 5 MG PO (08:11)
[2024-03-03] MEDS: NICODERM TRANSDERMAL 14 MG TRANSDERM (08:12)
[2024-03-03 08:26] LABS: Blood Urea Nitrogen 10 mg/dl (9-20); Carbon Dioxide 29 mmol/L (22-30); Chloride 94 mmol/L (98-107); Estimated Creatinine Clearance 105 ml/min; Glucose 97 mg/dl (70-99); Potassium 4.1 mmol/L (3.5-5.1); Sodium 132 mmol/L (135-145); eGFR > 60.00
--- NOTE | 2024-03-03 09:46 | W.PN.NEPH.PH ---
Today's Communication / Plan
-
oberve on FR
Assessment/Plan
-
Assessment
Hyponatremia
Schizophrenia
Reflux
Poor oral intake
Plan
Fluid restriction 48 ounces per day
Sodium stable at 132
Increase solute intake
If necessary can use salt tablets
urine osm of 171 not consistent with SIADH, likely due to poor solute intake and fluid ingestion
Follow BMP
Discussed with accompanying staff from his facility.
-
-
Date of Service: March 03, 2024
CC / HPI / ROS
-
Chief Complaint:
Hyponatremia
History of Present Illness:
sodium up to 132 with FR
hemodynamically stable
Review of Systems:
non oliguric
Labs
-
Labs:
WBC 4.7 10^3/uL (4.8-10.8) L 03/02/24 07:02
RBC 4.30 10^6/uL (4.70-6.10) L 03/02/24 07:02
Hgb 13.6 g/dL (13.0-18.0) 03/02/24 07:02
Hct 37.6 % (39.0-52.0) L 03/02/24 07:02
Plt Count 274 10^3/uL (130-400) 03/02/24 07:02
Sodium 132 mmol/L (135-145) L 03/03/24 06:38
Potassium 4.1 mmol/L (3.5-5.1) 03/03/24 06:38
Chloride 94 mmol/L (98-107) L 03/03/24 06:38
Carbon Dioxide 29 mmol/L (22-30) 03/03/24 06:38
BUN 10 mg/dl (9-20) 03/03/24 06:38
Creatinine 0.6 mg/dL (0.7-1.3) L 03/03/24 06:38
eGFR > 60.00 03/03/24 06:38
Glucose 97 mg/dl (70-99) 03/03/24 06:38
Calcium 9.0 mg/dl (8.4-10.2) 03/03/24 06:38
Albumin 4.3 g/dl (3.5-5.0) 03/02/24 07:02
Physical Exam
-
Vital Signs:
Vital Signs
Temp Pulse Resp BP Pulse Ox
97.5 F 89 18 132/84 97
03/03/24 07:00 03/03/24 07:00 03/03/24 07:00 03/03/24 07:00 03/03/24 07:00
Cardiovascular:: Regular rate and rhythm
--- NOTE | 2024-03-03 14:47 | W.PN.HOSP.TC ---
Addendum entered and electronically signed by Denice Neri MD 03/03/24 18:57:
I saw and evaluated the patient independently. I reviewed the resident�s note and agree with findings and plan as documented by Dr. Mullen.
GENERAL: thin cachectic male in no apparent distress
HEENT: NC/AT
HEART: regular rate and rhythm, +S1, +S2
LUNGS : clear to auscultation bilaterally
ABDOM: soft, nontender, nondistended, + bowel sounds
EXT: no cyanosis, clubbing, or edema
NEUROLOGIC: grossly intact
midepigastric abdominal pain--likely GERD symptoms vs PUD, doubt pancreatitis or cholelithiasis/biliary colic, doubt anginal equivalent---troponin and EKG WNL--lipase WNL--cont PPI--apprec GI
hyponatremia--appears euvolemic--likely SIADH (possibly from psych meds) BUT more likely water intoxication with pt drinking only water sometimes up to 15 bottles per day (500ml bottles)--apprec renal- urine and serum osmolality noted/urine sodium 5
all not consistent with SIADH--cont fluid restriction to 48 oz
schizophrenia -- calm--no behaviors--cont seroquel, haldol
smoking--12 cigs/day--nicotine patch
DVT proph--low risk, ambulating
code status -- FULL CODE
Original Note:
Today's Communication/Plan
-
Continue fluid restriction, Continue PPI, EGD scheduled for tommorow
Assessment / Plan
Assessment / Plan
pt is 63-yr-old
Problem #1: epigastric pain with underlying history of heartburn
Problem #2 : hyponatremia upon lab evaluation
Apprec GI consult-- Continue supportive care, PPI-abdominal ultrasound showed no hepatobiliary disease--patient scheduled for EGD tomorrow.
Apprec nephro consult-- Continue fluid restriction 48 ounces per day, Increase solute intake, if necessary use salt tablets, apprec OT/PT consult
Sodium level stable (132)--- continue to monitor
Anticipated Discharge: Within 24 hours
Subjective/Interval History
-
Date of Service: March 03, 2024
Patient is feeling very well and is in good spirit. Not restless anymore. Patient mentions he mixes his soda with water. His epigastric pain has resolved.
Objective Data
-
Labs:
Laboratory Results
03/03/24
06:38
Sodium 132 L
Potassium 4.1
Chloride 94 L
Carbon Dioxide 29
BUN 10
Creatinine 0.6 L
Glucose 97
Calcium 9.0
Vital Signs:
Vital Signs
Temp Pulse Resp BP Pulse Ox
97.5 F 89 18 132/84 97
03/03/24 07:00 03/03/24 07:00 03/03/24 07:00 03/03/24 07:00 03/03/24 07:00
I&O
03/02/24 03/03/24 03/04/24
06:59 06:59 06:59
Intake Total 1380 / 1380
Balance 1380 / 1380
Data Reviewed
-
Total Time Spent with Patient (in minutes): 45
[2024-03-03 15:00] VITALS: BP 126/72
--- NOTE | 2024-03-03 15:35 | CM ---
Patient to return to [facility]. Please call report to [phone]/ fax [phone] nurse Matthews. Patient would need wheelchair van or family to transport as staff unavailable to do so. Patient med list would be needed as soon as available. CM
will continue to follow for discharge planning needs.
Plan; return to [facility]; need communication as soon as possible. IF med changes the patient would need to go home wednesday.
--- NOTE | 2024-03-03 18:08 | W.PN.GI.CBS2 ---
Today's Communication / Plan
-
1. Epigastric pain and ? Odynophagia, decreased appetite and weight loss
Rule out esophagitis, ulcer disease versus other
No anemia noted on labs.
Abdominal ultrasound unremarkable.
Continue PPI.
Was supposed to have EGD today but had full breakfast. Will plan EGD tomorrow.
Mother is aware and consent obtained.
Assessment / Plan
-
1. Epigastric pain and ? Odynophagia, decreased appetite and weight loss
Rule out esophagitis, ulcer disease versus other
No anemia noted on labs.
Abdominal ultrasound unremarkable.
Continue PPI.
Was supposed to have EGD today but had full breakfast. Will plan EGD tomorrow.
Mother is aware and consent obtained.
Subjective
Subjective
Date of Service: March 03, 2024
Patient with possible odynophagia,
Objective
Data Reviewed
Laboratory Data:
Laboratory Results
03/02/24 07:02
03/03/24 06:38
Laboratory Results
Magnesium 2.1 mg/dl (1.6-2.3) 03/02/24 07:02
Total Bilirubin 1.0 mg/dl (0.2-1.3) 03/02/24 07:02
AST 34 U/L (17-59) 03/02/24 07:02
ALT 19 U/L (0-50) 03/02/24 07:02
Alkaline Phosphatase 74 U/L (38-126) 03/02/24 07:02
Lipase 62 U/L (23-300) 03/02/24 07:02
Vital Signs and I&O:
Vital Signs
Temp Pulse Resp BP Pulse Ox
97.6 F 85 18 126/72 99
03/03/24 15:00 03/03/24 15:00 03/03/24 15:00 03/03/24 15:00 03/03/24 15:00
I&O
03/02/24 03/03/24 03/04/24
06:59 06:59 06:59
Intake Total 1380 / 1380
Balance 1380 / 1380
[2024-03-03] MEDS: HALDOL 15 MG PO (19:45)
[2024-03-03] MEDS: DESYREL 100 MG PO (21:14)
[2024-03-03] MEDS: SEROQUEL 600 MG PO (21:17)
[2024-03-03 23:11] VITALS: BP 96/54
[2024-03-04 05:37] VITALS: BMI 19.0
[2024-03-04] MEDS: FIBERCON 625 MG PO ×2 (07:28→19:59)
[2024-03-04] MEDS: HALDOL 15 MG PO ×2 (07:28→19:59)
[2024-03-04] MEDS: SEROQUEL 50 MG PO ×2 (07:28→22:01)
[2024-03-04] MEDS: PROTONIX 40 MG PO (07:29)
[2024-03-04] MEDS: NICODERM TRANSDERMAL 14 MG TRANSDERM (07:29)
[2024-03-04] MEDS: COGENTIN 1 MG PO ×2 (07:29→19:59)
[2024-03-04] MEDS: VITAMIN D3 (cholecalciferol) 25 MCG PO (07:29)
[2024-03-04 07:35] VITALS: BP 113/78
--- NOTE | 2024-03-04 09:52 | PTCARENOTE ---
this patient is scheduled for endoscopy this AM. this RN gave him his AM meds including seroquel and haldol with sips of water. he called me and said he wants a bowl of cereal, because meds make his stomach feel terrible. I said he cannot eat he is
NPO. than he said that he is suicidal and wants to call the procedure off. GI and hospitalist notified. patient ordered 1:1 observation
[2024-03-04 11:50] VITALS: BP 101/62; BP_SYST 20
[2024-03-04 12:00] VITALS: BP 101/62; BP_SYST 20
--- NOTE | 2024-03-04 12:01 | W.PN.UPDATE ---
Update Note
Progress Note Update
s/p EGD- Findings suspicious or long segment [facility]lor's, 32-40cm, small HH, normal stomach, duodenum normal, bx taken
OK for regular diet
Omeporazole 40mg po twice a day at discharge and after 4 weeks, can cut it down to once a day in the morning , 30 min before breakfast.
Repeat EGD in 1 yr
[2024-03-04 12:05] VITALS: BP 121/72; BP_SYST 16
--- NOTE | 2024-03-04 12:48 | W.PN.HOSP.TC ---
Today's Communication/Plan
-
d/c Wednesday
Assessment / Plan
Assessment / Plan
pt is a 63 year old male
midepigastric abdominal pain--s/p EGD with [facility]--troponin and EKG WNL--lipase WNL--cont PPI BID x 1 month then daily thereafter--apprec GI
hyponatremia--appears euvolemic--likely SIADH (possibly from psych meds) BUT more likely water intoxication with pt drinking only water sometimes up to 15 bottles per day (500ml bottles)--apprec renal- urine and serum osmolality noted/urine sodium 5
all not consistent with SIADH--cont fluid restriction to 48 oz
schizophrenia -- calm--no behaviors--cont seroquel, haldol
smoking--12 cigs/day--nicotine patch
DVT proph--low risk, ambulating
code status -- FULL CODE
anticipate d/c back to [facility] Wednesday
Anticipated Discharge: Within 24 hours
Subjective/Interval History
-
Date of Service: March 04, 2024
pt threatened suicide because he couldn't eat his cereal--had EGD with [facility]--not suicidal--happy to have lunch
Objective Data
-
Vital Signs:
max temp for 24 hours
03/03/24
23:11
Temp 97.8 F
Vital Signs
Temp Pulse Resp BP Pulse Ox
97.5 F 83 16 121/72 98
03/04/24 12:05 03/04/24 12:05 03/04/24 12:05 03/04/24 12:05 03/04/24 12:05
I&O
03/03/24 03/04/24 03/05/24
06:59 06:59 06:59
Intake Total 1380 / 1380 1380 / 1380
Balance 1380 / 1380 1380 / 1380
Review of Systems
-
All other systems: Reviewed and negative
Physical Exam
-
General: Cachectic
HEENT: Normocephalic and Atraumatic
Respiratory: Clear to Auscultation; Negative Wheezes or Rhonchi
Cardiac: Regular Rhythm and S1/S2; Negative Murmur
GI: Soft, Nontender, Nondistended and Normal Bowel Sounds
Musculoskeletal: No Clubbing, No Cyanosis and No Edema
Neuro: Awake and Alert
Psych: Calm
[2024-03-04 15:33] LABS: Blood Urea Nitrogen 5 mg/dl (9-20); Calcium 9.4 mg/dl (8.4-10.2); Carbon Dioxide 32 mmol/L (22-30); Chloride 99 mmol/L (98-107); Estimated Creatinine Clearance 89 ml/min; Glucose 108 mg/dl (70-99); Potassium 4.2 mmol/L (3.5-5.1); Sodium 137 mmol/L (135-145); eGFR > 60.00
[2024-03-04 15:45] VITALS: BP 142/78
[2024-03-04] MEDS: DESYREL 100 MG PO (21:56)
[2024-03-04] MEDS: SEROQUEL 600 MG PO (22:01)
[2024-03-04 23:41] VITALS: BP 96/49
[2024-03-05 06:00] VITALS: BMI 19.3
[2024-03-05 07:32] VITALS: BP 99/70
[2024-03-05] MEDS: SEROQUEL 50 MG PO ×2 (08:30→20:26)
[2024-03-05] MEDS: PROTONIX 40 MG PO (08:31)
[2024-03-05] MEDS: FIBERCON 625 MG PO ×2 (08:31→20:26)
[2024-03-05] MEDS: HALDOL 15 MG PO ×2 (08:32→20:26)
[2024-03-05] MEDS: COGENTIN 1 MG PO ×2 (08:33→20:26)
[2024-03-05] MEDS: VITAMIN D3 (cholecalciferol) 25 MCG PO (08:33)
[2024-03-05] MEDS: NICODERM TRANSDERMAL 14 MG TRANSDERM (08:34)
--- NOTE | 2024-03-05 13:02 | CM ---
internet manager reached out to [facility] and spoke with nurse, Reina, who stated that her facility maintenance supervisor informed her that they could not readmit today and counseling case manager would need to follow up on Wednesday regarding transfer back to [facility].
[facility]
Report [phone]
fax [phone]
--- NOTE | 2024-03-05 13:58 | W.PN.HOSP.TC ---
Today's Communication/Plan
-
DC in am
Assessment / Plan
Assessment / Plan
pt is a 63 year old male
midepigastric abdominal pain--s/p EGD with [facility]--troponin and EKG WNL--lipase WNL--cont PPI BID x 1 month then daily thereafter--apprec GI
hyponatremia--appears euvolemic--likely SIADH (possibly from psych meds) BUT more likely water intoxication with pt drinking only water sometimes up to 15 bottles per day (500ml bottles)--apprec renal- urine and serum osmolality noted/urine sodium 5
all not consistent with SIADH--cont fluid restriction to 48 oz
schizophrenia -- calm--no behavioral issues--cont seroquel, haldol
smoking--12 cigs/day--nicotine patch
DVT proph--low risk, ambulating
code status -- FULL CODE
anticipate d/c back to [facility] tommorrow.
Anticipated Discharge: Within 24 hours
Subjective/Interval History
-
Date of Service: March 05, 2024
No overnight events.
Discharge back to [facility] pending which cannot happen today.
Abdominal pain. No nausea vomiting.
Tolerating diet.
Objective Data
-
Vital Signs:
Vital Signs
Temp Pulse Resp BP Pulse Ox
97.3 F 95 16 99/70 99
03/05/24 07:32 03/05/24 07:32 03/05/24 07:32 03/05/24 07:32 03/05/24 07:32
I&O
03/04/24 03/05/24 03/06/24
06:59 06:59 06:59
Intake Total 1380 / 1380 1140 / 1140
Balance 1380 / 1380 1140 / 1140
Review of Systems
-
Respiratory: Denies Trouble Breathing
Cardiac: Denies Chest Pain
Neuro: Denies Dizzy
Physical Exam
-
General: No Apparent Distress and Comfortable
Respiratory: Non Labored Respirations; Negative Accessory Resp Muscle Use
Cardiac: Regular Rhythm and S1/S2
Neuro: AO x 3
Psych: Calm
[2024-03-05 15:12] VITALS: BP 134/77
[2024-03-05] MEDS: SEROQUEL 600 MG PO (22:23)
[2024-03-05] MEDS: DESYREL 100 MG PO (22:24)
[2024-03-05 23:21] VITALS: BP 116/70
[2024-03-06 07:25] VITALS: BP 122/75
[2024-03-06] MEDS: SEROQUEL 50 MG PO (09:14)
[2024-03-06] MEDS: PROTONIX 40 MG PO (09:14)
[2024-03-06] MEDS: COGENTIN 1 MG PO (09:14)
[2024-03-06] MEDS: VITAMIN D3 (cholecalciferol) 25 MCG PO (09:15)
[2024-03-06] MEDS: NICODERM TRANSDERMAL 14 MG TRANSDERM (09:15)
[2024-03-06] MEDS: FIBERCON 625 MG PO (09:15)
[2024-03-06] MEDS: HALDOL 15 MG PO (09:15)
[2024-03-06] MEDS: MIRALAX 17 GRAMS PO (09:30)
[2024-03-06] MEDS: SENOKOT-S 1 TABLET PO (11:28)
--- NOTE | 2024-03-06 11:50 | CM ---
Addendum entered by Birdie Pastor 03/06/24 12:36:
Unable to get ambulance transport covered.
Spoke with patients mom, she will transport patient between 2:30 - 3:00 pm.
Patient updated.
Original Note:
TC to [facility] from [facility].
Plan transfer back today.
Clinicals faxed to [phone].
Ambulance transport per [facility]. Forms completed.
IMM completed.
Plan: back to [facility] today
[facility]-please send d/c packet.
Report# [phone]
--- NOTE | 2024-03-06 12:45 | W.DCSUMMARY ---
Addendum entered and electronically signed by Brant Mayen MD 03/06/24 14:06:
Read, reviewed, and agree. See same day progress note for additional details. Time spent coordinating care, DC planning, review of DC plan of care with resident, transition of care, review of records in EMR, med rec, consults, notes, d/w nursing,
family, and CM 35 mins
Original Note:
Documented by User: Rocky Mullen MD, Resident 03/06/24 13:08
Discharge Summary
Discharge Data
Date of Admission: 03/01/24
Date of Discharge: 03/06/24
-
Pending Results: Yes
Hospital Course
Patient is a 63-year-old male, known case of schizophrenia, who lives in retirement ([facility]). He came to the ED complaining of midepigastric pain and a single episode of nonbloody vomiting the day prior to admission. He has had limited food
intake since then as the pain got worse with eating. He did not report any fever/chills, or shortness of breath. He he did report a history of reflux from about 6 months ago which he had been taking Maalox and OTC drugs but that resulted in slight
improvement. Patient's caregiver and mother reported increased frequency of urination from about a month ago and an increase amount of drinking water, sometimes going up to 10-15 small water bottles (500 cc) daily. Upon evaluation in the ED, he
had a normal EKG and negative troponin levels.He was found to have Euvolemic hyponatremia (Ro=484). Patient was admitted for management of GERD and to evaluate acute hyponatremia.
Problem #1: Midepigastric pain: GI consult recommended supportive care and PPI. Abdominal ultrasound was normal (r/o biliary colitis). Upper endoscopy was done, which showed signs of Traylor's esophagus; pathology is pending. Per GI consult,
patient can be discharged with PPI twice daily for a month and daily after that. Patient to follow-up in 2 weeks for pathology results.
Problem #2: Acute hyponatremia: Urine sodium and osmolality levels in favor of water intoxication. Renal consult recommended fluid restriction to 48 ounces per day.
Hyponatremia resolved. To continue fluid restriction 48 ounces per day after discharge.
Problem #3: Schizophrenia: Patient was calm and stable during hospitalization. Medications for schizophrenia to be continued at the same dose.
Patient is a stable for discharge.
Discharge Plan
-
Patient Disposition: Home (Routine Discharge)
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
Condition: Good
Diet: As tolerated, Regular and Restrict fluids to 48 oz
Activity: As tolerated
Driving Restrictions: As prior to admission
Bathing Restrictions: None
Activity Restrictions/Additional Instructions:
Call GI clinic in 2 weeks for pathology results
Referrals:
Angel Villegas DO [Family Provider] - in less than 1 week
Mansi Rocha MD [Active] - in four to six weeks
Additional Discharge Medication Instructions: Haldol 15 BID is usual dose and not new dose.
Prescriptions:
New
haloperidol 5 mg Tablet
15 mg PO BID Qty: 0 0RF
pantoprazole 40 mg Tablet,Delayed Release (Dr/Ec)
40 mg PO BID Qty: 60 0RF
Rx Instructions:
take two times daily x 1 month then daily thereafter 30 min before breakfast
Continued
quetiapine [Seroquel] 300 mg Tablet
600 mg PO HS
polyethylene glycol 3350 [Miralax] 17 gram Powder In Packet
17 g PO DAILYPRN PRN (Reason: constipation)
hydroxyzine HCl 50 mg Tablet
50 mg PO BIDPRN PRN (Reason: anxiety)
acetaminophen [Tylenol Extra Strength] 500 mg Tablet
1,000 mg PO TIDPRN MDD o PRN (Reason: mild pain)
trazodone 100 mg Tablet
100 mg PO HS
calcium polycarbophil [Fiber-Lax] 625 mg Tablet
635 mg PO BID
benztropine 1 mg Tablet
1 mg PO BID
quetiapine 50 mg Tablet
50 mg PO BID
quetiapine [Seroquel] 50 mg Tablet
50 mg PO BIDPRN PRN (Reason: anxiety)
cholecalciferol (vitamin D3) [Vitamin D3] 25 mcg (1,000 unit) Tablet
25 mcg PO DAILY
Discontinued
haloperidol 5 mg Tablet
5 mg PO BID
omeprazole 40 mg Capsule,Delayed Release(Dr/Ec)
40 mg PO DAILY
alum-mag hydroxide-simeth [Laura-Lanta] 200-200-20 mg/5 mL Suspension
15 ml PO DAILYPRN PRN (Reason: gerd)
Discharge Orders:
Discharge Patient (As Directed); Ordered 03/06/24
Ordered By: Rocky Mullen
Discharge Date and Time
Discharge Date/Time: 03/06/24 14:01
Print Language: FRENCH

Documented by User: Brant Mayen MD 03/06/24 14:05
Discharge Summary
Discharge Data
Date of Admission: 03/01/24
Date of Discharge: 03/06/24
Hospital Course
Patient is a 63-year-old male, known case of schizophrenia, who lives in retirement ([facility]). He came to the ED complaining of midepigastric pain and a single episode of nonbloody vomiting the day prior to admission. He has had limited food
intake since then as the pain got worse with eating. He did not report any fever/chills, or shortness of breath. He he did report a history of reflux from about 6 months ago which he had been taking Maalox and OTC drugs but that resulted in slight
improvement. Patient's caregiver and mother reported increased frequency of urination from about a month ago and an increase amount of drinking water, sometimes going up to 10-15 small water bottles (500 cc) daily. Upon evaluation in the ED, he
had a normal EKG and negative troponin levels.He was found to have Euvolemic hyponatremia (Kd=687). Patient was admitted for management of GERD and to evaluate acute hyponatremia.
Problem #1: Midepigastric pain: GI consult recommended supportive care and PPI. Abdominal ultrasound was normal . Upper endoscopy was done, which showed signs of Traylor's esophagus; pathology is pending. Per GI consult, patient can be discharged
with PPI twice daily for a month and daily after that. Patient to follow-up in 2 weeks for pathology results.
Problem #2: Acute hyponatremia: Urine sodium and osmolality levels in favor of water intoxication. Renal consult recommended fluid restriction to 48 ounces per day.
Hyponatremia resolved. To continue fluid restriction 48 ounces per day after discharge.
Problem #3: Schizophrenia: Patient was calm and stable during hospitalization. Medications for schizophrenia to be continued at the same dose.
Patient is a stable for discharge.
Discharge Plan
-
Patient Disposition: Home (Routine Discharge)
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
Condition: Good
Diet: As tolerated, Regular and Restrict fluids to 48 oz
Activity: As tolerated
Driving Restrictions: As prior to admission
Bathing Restrictions: None
Activity Restrictions/Additional Instructions:
Call GI clinic in 2 weeks for pathology results
Referrals:
Angel Villegas DO [Family Provider] - in less than 1 week
Mansi Rocha MD [Active] - in four to six weeks
Additional Discharge Medication Instructions: Haldol 15 BID is usual dose and not new dose.
Prescriptions:
New
haloperidol 5 mg Tablet
15 mg PO BID Qty: 0 0RF
pantoprazole 40 mg Tablet,Delayed Release (Dr/Ec)
40 mg PO BID Qty: 60 0RF
Rx Instructions:
take two times daily x 1 month then daily thereafter 30 min before breakfast
Continued
quetiapine [Seroquel] 300 mg Tablet
600 mg PO HS
polyethylene glycol 3350 [Miralax] 17 gram Powder In Packet
17 g PO DAILYPRN PRN (Reason: constipation)
hydroxyzine HCl 50 mg Tablet
50 mg PO BIDPRN PRN (Reason: anxiety)
acetaminophen [Tylenol Extra Strength] 500 mg Tablet
1,000 mg PO TIDPRN MDD o PRN (Reason: mild pain)
trazodone 100 mg Tablet
100 mg PO HS
calcium polycarbophil [Fiber-Lax] 625 mg Tablet
635 mg PO BID
benztropine 1 mg Tablet
1 mg PO BID
quetiapine 50 mg Tablet
50 mg PO BID
quetiapine [Seroquel] 50 mg Tablet
50 mg PO BIDPRN PRN (Reason: anxiety)
cholecalciferol (vitamin D3) [Vitamin D3] 25 mcg (1,000 unit) Tablet
25 mcg PO DAILY
Discontinued
haloperidol 5 mg Tablet
5 mg PO BID
omeprazole 40 mg Capsule,Delayed Release(Dr/Ec)
40 mg PO DAILY
alum-mag hydroxide-simeth [Laura-Lanta] 200-200-20 mg/5 mL Suspension
15 ml PO DAILYPRN PRN (Reason: gerd)
Discharge Orders:
Discharge Patient (As Directed); Ordered 03/06/24
Ordered By: Rocky Mullen
Discharge Date and Time
Discharge Date/Time: 03/06/24 14:01
Print Language: FRENCH
[2024-03-06 13:11] VITALS: BP 132/88
--- NOTE | 2024-03-06 14:23 | W.DS.TRANS ---
DC Summary - Register In Chancery
-
Discharge Instructions:
Discharge Diagnosis/Procedures Midepigastric abdominal pain-EGD consistent with
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
hyponatremia due to water intoxication,
schizophrenia
Diet As tolerated,Regular,Restrict fluids to 48 oz
Activity As tolerated
Driving Restrictions As prior to admission
Bathing Restrictions None
Instructions:
Stand-Alone Forms:
Changes to Home Medications: Yes
Discharge Medications:
DC Medications w/original date entered in [facility]
acetaminophen 500 mg tablet (Tylenol Extra Strength) 1,000 mg PO TIDPRN PRN mild pain 03/01/24
benztropine 1 mg tablet 1 mg PO BID EPS 03/01/24
calcium polycarbophil 625 mg tablet (Fiber-Lax) 635 mg PO BID Supplement 03/01/24
cholecalciferol (vitamin D3) 25 mcg (1,000 unit) tablet (Vitamin D3) 25 mcg PO DAILY Supplement 03/01/24
hydroxyzine HCl 50 mg tablet 50 mg PO BIDPRN PRN anxiety 03/01/24
polyethylene glycol 3350 17 gram oral powder packet (Miralax) 17 g PO DAILYPRN PRN constipation 03/01/24
quetiapine 300 mg tablet (Seroquel) 600 mg PO HS Mental Health/Anxiety 03/01/24
quetiapine 50 mg tablet 50 mg PO BID Mental Health/Anxiety 03/01/24
quetiapine 50 mg tablet (Seroquel) 50 mg PO BIDPRN PRN anxiety 03/01/24
trazodone 100 mg tablet 100 mg PO HS Mental Health/Anxiety 03/01/24
haloperidol 5 mg tablet 15 mg (3 x 5 mg) PO BID Mental Health/Anxiety #0 tabs 03/04/24
pantoprazole 40 mg tablet,delayed release 40 mg PO BID Gastrointestinal issue #60 tabs 03/04/24
Home Medication Changes
New medication: pantoprazole 40 mg tablet,delayed release 40 mg PO BID Gastrointestinal issue #60 tabs 03/04/24
Pending Results: Yes
Additional Pending Results:
Pathology from EGD is pending.
--- NOTE | 2024-03-06 14:26 | W.PN.HOSP.TC ---
Addendum entered and electronically signed by Brant Mayen MD 03/06/24 15:34:
I saw and evaluated the patient. I reviewed the resident�s note and agree with findings and plan as documented in the resident�s note.
Original Note:
Today's Communication/Plan
-
d/c back to [facility] today
Assessment / Plan
Assessment / Plan
pt is a 63 year old male
midepigastric abdominal pain--s/p EGD with Traylor's--troponin and EKG WNL--lipase WNL--cont PPI BID x 1 month then daily thereafter--apprec GI
hyponatremia--appears euvolemic--likely SIADH (possibly from psych meds) BUT more likely water intoxication with pt drinking only water sometimes up to 15 bottles per day (500ml bottles)--apprec renal- urine and serum osmolality noted/urine sodium 5
all not consistent with SIADH--cont fluid restriction to 48 oz
schizophrenia -- calm--no behavioral issues--cont seroquel, haldol
smoking--12 cigs/day--nicotine patch
DVT proph--low risk, ambulating
code status -- FULL CODE
d/c back to [facility] today.
Anticipated Discharge: Today
Subjective/Interval History
-
Date of Service: March 06, 2024
Patient is calm and is feeling well. Does not have any c/o.
Objective Data
-
Vital Signs:
Vital Signs
Temp Pulse Resp BP Pulse Ox
98.3 F 85 20 122/75 96
03/06/24 07:25 03/06/24 07:25 03/06/24 07:25 03/06/24 07:25 03/06/24 08:19
I&O
03/05/24 03/06/24 03/07/24
06:59 06:59 06:59
Intake Total 1140 / 1140 1560 / 1560
Output Total 480 / 480
Balance 1140 / 1140 1080 / 1080
Review of Systems
-
History Source: Patient
All other systems: Reviewed and negative
Physical Exam
-
General: Well Developed, Well Nourished and No Apparent Distress
HEENT: Normocephalic, Atraumatic and Moist Mucous Membranes
Respiratory: Clear to Auscultation and Non Labored Respirations
Cardiac: Regular Rhythm and S1/S2
GI: Soft, Nontender, Nondistended and Normal Bowel Sounds
Rectal: Brown
Genito-urinary: No Costovertebral Tender
Musculoskeletal: No Clubbing, No Cyanosis and No Edema
Skin: Warm
Neuro: Awake, Alert, Oriented and AO x 3
Hematologic / Lymphatic: No Lymphadenopathy
Data Reviewed
-
Total Time Spent with Patient (in minutes): 45
== END 2024-03-06 14:01 | disposition home or self-care (01) | DRG 381 ==
LOC: 4 WEST ACU 17:25
PROVIDERS: Internal Medicine Gastroenterology; Nurse Practitioner; Specialist; ADMITTING PHYSICIAN Internal Medicine; ATTENDING PHYSICIAN Internal Medicine; CONSULT PHYSICIAN Internal Medicine Gastroenterology; CONSULT PHYSICIAN Specialist; EMERGENCY PHYSICIAN Emergency Medicine; FAMILY PHYSICIAN Family Medicine
PROC: 0DB28ZX Excision of Middle Esophagus, Via Natural or Artificial Opening Endoscopic, Diagnostic (ICD-10-PCS; 2024-03-04)
PROC: 0DB98ZX Excision of Duodenum, Via Natural or Artificial Opening Endoscopic, Diagnostic (ICD-10-PCS; 2024-03-04)
PROC: 0DB38ZX Excision of Lower Esophagus, Via Natural or Artificial Opening Endoscopic, Diagnostic (ICD-10-PCS; 2024-03-04)
PROC: 0DB68ZX Excision of Stomach, Via Natural or Artificial Opening Endoscopic, Diagnostic (ICD-10-PCS; 2024-03-04)
DX: K22.70 Barrett's esophagus without dysplasia (principal); E22.2 Syndrome of inappropriate secretion of antidiuretic hormone; R64 Cachexia; Z68.1 Body mass index [BMI] 19.9 or less, adult; F20.9 Schizophrenia, unspecified; E87.79 Other fluid overload; K44.9 Diaphragmatic hernia without obstruction or gangrene; K21.9 Gastro-esophageal reflux disease without esophagitis; F17.210 Nicotine dependence, cigarettes, uncomplicated; R63.8 Other symptoms and signs concerning food and fluid intake; Z79.899 Other long term (current) drug therapy; Z88.8 Allergy status to other drugs, medicaments and biological substances
CPT/HCPCS: 88305; 71046; 76700; 80048; 80053; 81003; 83690; 83735; 83930; 83935; 84300; 84443; 84484; 85025; 85027; 87070; 88342; 93005; 96374; 99285

== ENCOUNTER 2024-05-04 14:12 | Emergency (ER) | payer MEDICARE, OTHER, MEDICAID, SELFPAY ==
[2024-05-04 14:17] VITALS: BMI 19.2
[2024-05-04 14:20] VITALS: BP 134/83
[2024-05-04 14:21] VITALS: BP 134/83
--- NOTE | 2024-05-04 14:25 | ED.GENMED ---
History of Present Illness
General
Chief Complaint: Abnormal Lab Value
Time Seen by Provider: 05/04/24 14:22
History of Present Illness
History of Present Illness:
64-year-old male with history of schizophrenia presents to the emergency department from [facility] for evaluation of low sodium. Had labs drawn yesterday showing a sodium of 127. Per facility report the patient was acting 'strange'. He denies
any complaints. No known history of hyponatremia. He is reportedly on a fluid restriction but there is suspicion that he is noncompliant when he leaves the facility for 1 day each week.
Past History
Past History
ED Past Medical History: Psychiatric (schizophrenia) and Other (Borderline diabetes, GERD, schizoaffective disorder)
ED Past Surgical History: None
Social History
Tobacco: Smoker
Alcohol: None
Drug: None
Personal: Single
Living: other (long-term)
Employment: Not employed
Family History
Family History: CAD
Review of Systems
Review of Systems
Allergies reviewed?: Yes
All Other Systems: ROS reviewed and negative except as documented in HPI and ROS
Phy Exam
Physical Exam
Physical Exam:
GEN: Well appearing, NAD, WDWN
HEENT: Oral mucosa moist, no scleral icterus
Cardiac: Regular rate
Lung: No respiratory distress, no tachypnea
MSK: No gross deformity or injuries
Skin: Good color, no pallor or jaundice, no rashes
Neuro: AO x3, moves all extremities freely
Psych: Calm, cooperative
Course
Orders/Labs/Results
Orders:
Orders
05/04/24 14:13
EKG [Electrocardiogram (*1)] Urgent
Reason for Study: Bradycardia / Tachycardia
05/04/24 14:14
EKG- Treatment ONCE
05/04/24 14:16
CBC/With Diff [Complete Blood Count/With Diff] Urgent
CMP [Comprehensive Metabolic Panel] Urgent
Serum Osmolality Urgent
Comment: SERUM OSMOLALITY ADDED ON BY FLOOR 2:30PM 05-04-24
05/04/24 14:24
Add On- LAB Urgent
Tests Added?: serum osmolality
Osmolality, Random Urine Urgent
Date Specimen was Collected: 05/04/24
Time Specimen was Collected: 14:29
Urine Sodium Urgent
Date Specimen was Collected: 05/04/24
Time Specimen was Collected: 14:29
05/04/24 18:04
Urinalysis Reflex To Culture Urgent
Date Specimen was Collected: 05/04/24
Time Specimen was Collected: 14:29
Abnormal Lab Results
05/04/24
14:16
RBC 4.36 L 10^6/uL
(4.70-6.10)
Hct 37.9 L %
(39.0-52.0)
MCH 32.1 H pg
(27.0-31.0)
Absolute Lymphs (auto) 0.9 L 10^3/uL
(1.2-3.4)
Absolute Monos (auto) 0.7 H 10^3/uL
(0.1-0.6)
Lymphocytes % 13.7 L %
(20.5-51.1)
Monocytes % 10.6 H %
(1.7-9.3)
Sodium 134 L mmol/L
(135-145)
Chloride 95 L mmol/L
(98-107)
Glucose 125 H mg/dl
(70-99)
AST 72 H U/L
(17-59)
05/04/24 14:16
05/04/24 14:16
Vital Signs
Initial and Last Documented VS:
Initial Vital Signs
Temp Pulse Resp Pulse Ox
98.5 F 99 15 97
05/04/24 14:17 05/04/24 14:17 05/04/24 14:17 05/04/24 14:17
Last Documented Vital Signs
Temp Pulse Resp BP Pulse Ox
98.5 F 101 19 134/83 98
05/04/24 14:17 05/04/24 14:21 05/04/24 14:21 05/04/24 14:21 05/04/24 14:21
MDM/Problems Addressed
MDM/Problems Addressed:
Patient's labs returned to normal here today. Transient hyponatremia may be on the basis of his noncompliance with fluid restriction versus side effect of his antipsychotics. Recommend he follow-up with his primary care physician for repeat sodium
check within 1 week
*Critical Care Note
Total Time (30-74mins, 75-104mins- exclusive of procedures): Not Applicable
ED Attending Note
-
Portions of this chart may have been created with voice recognition software.� Occasional wrong word or��sound alike� substitutions may have occurred due to the inherent limitations of voice recognition software.
Discharge Plan
Departure
Patient Disposition: Home (Routine Discharge)
Date of Disposition: 05/04/24
Time of Disposition: 14:58
Patient with high blood pressure during this ER visit?: No
Discharge Problem:
Acute hyponatremia
Instructions: Hyponatremia
Prescriptions:
No Action
quetiapine [Seroquel] 300 mg Tablet
600 mg PO HS
polyethylene glycol 3350 [Miralax] 17 gram Powder In Packet
17 g PO DAILYPRN PRN (Reason: constipation)
hydroxyzine HCl 50 mg Tablet
50 mg PO BIDPRN PRN (Reason: anxiety)
acetaminophen [Tylenol Extra Strength] 500 mg Tablet
1,000 mg PO TIDPRN MDD o PRN (Reason: mild pain)
trazodone 100 mg Tablet
100 mg PO HS
calcium polycarbophil [Fiber-Lax] 625 mg Tablet
635 mg PO BID
benztropine 1 mg Tablet
1 mg PO BID
quetiapine 50 mg Tablet
50 mg PO BID
quetiapine [Seroquel] 50 mg Tablet
50 mg PO BIDPRN PRN (Reason: anxiety)
cholecalciferol (vitamin D3) [Vitamin D3] 25 mcg (1,000 unit) Tablet
25 mcg PO DAILY
haloperidol 5 mg Tablet
15 mg PO BID Qty: 0 0RF
pantoprazole 40 mg Tablet,Delayed Release (Dr/Ec)
40 mg PO BID Qty: 60 0RF
Rx Instructions:
take two times daily x 1 month then daily thereafter 30 min before breakfast
Referrals:
Angel Villegas DO [Family Provider] -
Activity Restrictions/Additional Instructions:
Freddie's Sodium level improved to 134 today
Interventions
Interventions:
*Risk Screen - Suicide Last Done: 05/04/24 14:17
*General Assessment Last Done: 05/04/24 14:17
*Neglect/Abuse Screening Last Done: 05/04/24 14:17
*Nursing Disposition Last Done: 05/04/24 15:10
Discharge Date and Time
Discharge Date/Time: 05/04/24 15:11
Print Language: SYRIAC
[2024-05-04 14:32] LABS: % Basophils 0.1 % (0-2); % Eosinophils 0.1 % (0-6); % Immature Granulocytes 0.3 % (0-0.5); % Lymphocytes 13.7 % (20.5-51.1); % Monocytes 10.6 % (1.7-9.3); % Neutrophils 75.2 % (42.2-75.2); Absolute Lymphocytes 0.9 10^3/uL (1.2-3.4); Absolute Monocytes 0.7 10^3/uL (0.1-0.6); Hematocrit 37.9 % (39.0-52.0); Mean Corp Hgb Conc. 36.9 g/dL (33.0-37.0); Mean Corpuscular Hgb 32.1 pg (27.0-31.0); Mean Corpuscular Volume 86.9 fL (80.0-94.0); Mean Platelet Volume 10.1 fL (7.4-10.4); Nucleated Red Blood Cells % 0 % (-); Platelet Count 328 10^3/uL (130-400); Red Blood Cell Count 4.36 10^6/uL (4.70-6.10); Red Cell Dist. Width 11.7 % (11.5-14.5); White Blood Cell Count 6.7 10^3/uL (4.8-10.8)
[2024-05-04 14:54] LABS: ALT (SGPT) 35 U/L (0-50); AST (SGOT) 72 U/L (17-59); Albumin 4.5 g/dl (3.5-5.0); Alkaline Phosphatase 104 U/L (38-126); Blood Urea Nitrogen 14 mg/dl (9-20); Calcium 9.4 mg/dl (8.4-10.2); Carbon Dioxide 30 mmol/L (22-30); Chloride 95 mmol/L (98-107); Estimated Creatinine Clearance 86 ml/min; Glucose 125 mg/dl (70-99); Potassium 4.3 mmol/L (3.5-5.1); Sodium 134 mmol/L (135-145); Total Bilirubin 0.7 mg/dl (0.2-1.3); Total Protein 6.4 g/dl (6.3-8.2); eGFR > 60.00
[2024-05-04 16:13] LABS: Osmolality Serum 278 mOsm/kg (275-300)
== END 2024-05-04 15:11 | disposition home or self-care (01) ==
LOC: EMR 14:12
PROVIDERS: EMERGENCY PHYSICIAN Emergency Medicine; FAMILY PHYSICIAN Family Medicine
DX: E87.1 Hypo-osmolality and hyponatremia (principal); F17.200 Nicotine dependence, unspecified, uncomplicated; F20.9 Schizophrenia, unspecified
CPT/HCPCS: 99284; 80053; 83930; 85025; 93005

== ENCOUNTER 2024-05-12 09:59 | Emergency (ER) | payer MEDICARE, OTHER, MEDICAID, SELFPAY ==
[2024-05-12 10:05] VITALS: BP 126/72
--- NOTE | 2024-05-12 10:30 | ED.GENMED ---
History of Present Illness
General
Chief Complaint: Abnormal Lab Value
Source: patient
Exam Limitations: none
Time Seen by Provider: 05/12/24 10:25
Nursing documentation reviewed up to this point in time: agreed with
History of Present Illness
History of Present Illness:
Patient is a 64-year-old male sent for evaluation for concern for low sodium. Patient has a history of schizophrenia lives in [facility] hyponatremia in the past(from water intoxication) sent from [place] for hyponatremia. Patient has no
complaints he is awake alert oriented x 3 calm and cooperative.
I did speak to nurse there who thought that patient was not acting necessarily himself and little more agitated than normal. They were concerned about low sodium since he was hyponatremic in the past. He is on a 48 ounce fluid restriction.
Past History
Past History
ED Past Medical History: Psychiatric (schizophrenia) and Other (Borderline diabetes, GERD, schizoaffective disorder)
ED Past Surgical History: None
Social History
Tobacco: Smoker
Alcohol: None
Drug: None
Personal: Single
Living: other (assisted)
Employment: Not employed
Family History
Family History: CAD
Review of Systems
Review of Systems
Allergies reviewed?: Yes
All Other Systems: ROS reviewed and negative except as documented in HPI and ROS
Constitutional: Reports no symptoms
Respiratory: Reports no symptoms
Cardiac: Reports no symptoms
ABD/GI: Reports no symptoms
Musculoskeletal: Reports no symptoms
Skin: Reports no symptoms
Neurological: Reports no symptoms
Psychiatric: Reports other (Slightly more agitated than normal)
Phy Exam
General Physical Exam
General Presentation: no apparent distress
General age: appears stated age
General Skin: warm and dry
General Habitus: normal
General Mental: alert
General Hydration: dry mucous membranes
Cardiovascular Exam
Cardiovascular Exam: regular rate/rhythm, no murmur and normal peripheral pulses
Pulmonary Exam
Pulmonary Exam: lungs clear and no respiratory distress
Neurological Exam
Neurological Exam: alert and oriented x3
Newcomb Coma Scale
Eye Opening: Spontaneous
Verbal Response: Oriented
Motor Response: Obeys Commands
GCS Total Score: 15
Musculoskeletal Exam
Musculoskeletal Exam: full ROM
Skin Exam
Skin Exam: normal color and warm/dry
Psychiatric Exam
Psychiatric Exam: normal mood/affect
Course
Orders/Labs/Results
Orders:
Orders
05/12/24 10:30
IV Insert/Care/Rem.- Treatment PRN
05/12/24 10:57
Complete Blood Count/With Diff Urgent
Comprehensive Metabolic Panel Urgent
05/12/24 12:13
Urinalysis Reflex To Culture Urgent
Date Specimen was Collected: 05/12/24
Time Specimen was Collected: 12:09
Abnormal Lab Results
05/12/24
10:57
RBC 4.67 L 10^6/uL
(4.70-6.10)
MCH 31.3 H pg
(27.0-31.0)
Absolute Lymphs (auto) 1.0 L 10^3/uL
(1.2-3.4)
Lymphocytes % 17.8 L %
(20.5-51.1)
Creatinine 0.6 L mg/dL
(0.7-1.3)
Glucose 104 H mg/dl
(70-99)
05/12/24 10:57
05/12/24 10:57
Vital Signs
Initial and Last Documented VS:
Initial Vital Signs
Temp Pulse Resp BP Pulse Ox
98.2 F 98 20 126/72 98
05/12/24 10:05 05/12/24 10:05 05/12/24 10:05 05/12/24 10:05 05/12/24 10:05
Last Documented Vital Signs
Temp Pulse Resp BP Pulse Ox
98.2 F 83 17 122/82 97
05/12/24 10:05 05/12/24 11:15 05/12/24 11:15 05/12/24 11:01 05/12/24 11:15
MDM/Problems Addressed
Differential Diagnosis Includes:
Not limited to electrolyte abnormality hyponatremia, UTI
MDM/Problems Addressed:
Patient is a 64-year-old male with schizophrenia at [facility] sent by nurse for evaluation. Nurse was concerned the patient's sodium was low again as he was not necessarily acting himself. She reports he has been mildly agitated. He is on a 48
ounce fluid restriction. She reports no fevers and no other concerning symptoms.
Patient presents awake alert no acute distress he is awake alert and oriented x 3 here. Initially was very cooperative labs were done and normal sodium is normal at 140. Patient did eventually rip out his IV and wants to go. I will check urine
to make sure no infection however if negative will plan to discharge home. I did speak with nurse who noted again that patient seems to have a decreased appetite and has been losing weight. The patient does not meet criteria for admission I did
review with nurse that he will need outpatient workup for this by family doctor.
Urinalysis negative here in the ER patient has been calm cooperative no acute distress. stable for d/c back to [facility].
Chronic conditions affecting care:
Schizophrenia
*Critical Care Note
Total Time (30-74mins, 75-104mins- exclusive of procedures): Not Applicable
ED Attending Note
-
Portions of this chart may have been created with voice recognition software.� Occasional wrong word or��sound alike� substitutions may have occurred due to the inherent limitations of voice recognition software.
Discharge Plan
Departure
Patient Disposition: Home (Routine Discharge)
Date of Disposition: 05/12/24
Time of Disposition: 12:51
Patient with high blood pressure during this ER visit?: No
Covid-19: Not Applicable
Discharge Problem:
Encounter for medical assessment
Prescriptions:
No Action
quetiapine [Seroquel] 300 mg Tablet
600 mg PO HS
polyethylene glycol 3350 [Miralax] 17 gram Powder In Packet
17 g PO DAILYPRN PRN (Reason: constipation)
hydroxyzine HCl 50 mg Tablet
50 mg PO BIDPRN PRN (Reason: anxiety)
acetaminophen [Tylenol Extra Strength] 500 mg Tablet
1,000 mg PO TIDPRN MDD o PRN (Reason: mild pain)
trazodone 100 mg Tablet
100 mg PO HS
calcium polycarbophil [Fiber-Lax] 625 mg Tablet
635 mg PO BID
benztropine 1 mg Tablet
1 mg PO BID
quetiapine 50 mg Tablet
50 mg PO BID
quetiapine [Seroquel] 50 mg Tablet
50 mg PO BIDPRN PRN (Reason: anxiety)
cholecalciferol (vitamin D3) [Vitamin D3] 25 mcg (1,000 unit) Tablet
25 mcg PO DAILY
haloperidol 5 mg Tablet
15 mg PO BID Qty: 0 0RF
pantoprazole 40 mg Tablet,Delayed Release (Dr/Ec)
40 mg PO BID Qty: 60 0RF
Rx Instructions:
take two times daily x 1 month then daily thereafter 30 min before breakfast
Referrals:
Angel Villegas DO [Family Provider] -
Activity Restrictions/Additional Instructions:
Patient's labs were normal here.
his sodium was normal at 140. He had no urine infection. Patient must be evaluated by family doctor the next 2 days for concerning symptoms of decreased appetite, weight loss.
Return of any worsening of symptoms
Interventions
Interventions:
*Risk Screen - Suicide Last Done: 05/12/24 10:05
*General Assessment Last Done: 05/12/24 10:05
*Neglect/Abuse Screening Last Done: 05/12/24 10:05
ED- Fall Risk Assessment Last Done: 05/12/24 11:03
*ED COVID-19 Vaccine History Last Done: 05/12/24 11:02
Discharge Date and Time
Print Language: VIETNAMESE
[2024-05-12 10:42] VITALS: BP 127/75
[2024-05-12 10:43] VITALS: BMI 20.9
[2024-05-12 11:01] VITALS: BP 122/82
[2024-05-12 11:06] LABS: % Basophils 0.7 % (0-2); % Eosinophils 3.5 % (0-6); % Immature Granulocytes 0.2 % (0-0.5); % Lymphocytes 17.8 % (20.5-51.1); % Monocytes 7.3 % (1.7-9.3); % Neutrophils 70.5 % (42.2-75.2); Absolute Eosinophils 0.2 10^3/uL (0-0.7); Absolute Monocytes 0.4 10^3/uL (0.1-0.6); Hematocrit 42.5 % (39.0-52.0); Hemoglobin 14.6 g/dL (13.0-18.0); Mean Corp Hgb Conc. 34.4 g/dL (33.0-37.0); Mean Corpuscular Hgb 31.3 pg (27.0-31.0); Mean Platelet Volume 10.3 fL (7.4-10.4); Nucleated Red Blood Cells % 0 % (-); Platelet Count 306 10^3/uL (130-400); Red Blood Cell Count 4.67 10^6/uL (4.70-6.10); Red Cell Dist. Width 12.5 % (11.5-14.5); White Blood Cell Count 5.7 10^3/uL (4.8-10.8)
[2024-05-12 11:21] LABS: ALT (SGPT) 22 U/L (0-50); AST (SGOT) 24 U/L (17-59); Albumin 4.4 g/dl (3.5-5.0); Alkaline Phosphatase 83 U/L (38-126); Blood Urea Nitrogen 18 mg/dl (9-20); Calcium 9.9 mg/dl (8.4-10.2); Carbon Dioxide 29 mmol/L (22-30); Chloride 102 mmol/L (98-107); Estimated Creatinine Clearance 109 ml/min; Glucose 104 mg/dl (70-99); Potassium 4.6 mmol/L (3.5-5.1); Sodium 140 mmol/L (135-145); Total Bilirubin 0.5 mg/dl (0.2-1.3); Total Protein 6.3 g/dl (6.3-8.2); eGFR > 60.00
[2024-05-12 12:43] LABS: Urine Albumin Negative (Neg - Trace); Urine Bilirubin Negative (Negative); Urine Character Clear (Clear); Urine Color Yellow; Urine Glucose Negative (Negative); Urine Ketone Negative (Negative); Urine Leukocyte Negative (Negative); Urine Nitrite Negative (Negative); Urine Occult Blood Negative (Negative); Urine Specific Gravity 1.015 (<1.030); Urine Urobilinogen Negative (Neg - 1+)
[2024-05-12 13:12] VITALS: BP 124/82
== END 2024-05-12 13:13 | disposition home or self-care (01) ==
LOC: EMR 09:59
PROVIDERS: Nurse Practitioner; EMERGENCY PHYSICIAN Emergency Medicine; FAMILY PHYSICIAN Family Medicine
DX: Z02.2 Encounter for examination for admission to residential institution (principal); R79.89 Other specified abnormal findings of blood chemistry; F25.9 Schizoaffective disorder, unspecified; R73.03 Prediabetes; K21.9 Gastro-esophageal reflux disease without esophagitis; F17.200 Nicotine dependence, unspecified, uncomplicated; Z82.49 Family history of ischemic heart disease and other diseases of the circulatory system
CPT/HCPCS: 99283; 80053; 81003; 85025

== ENCOUNTER 2024-09-05 06:30 | Day surgery (SDC) | payer MEDICARE, OTHER, SELFPAY ==
[2024-09-05 09:50] VITALS: BP 138/89; BMI 21.6
[2024-09-05 09:55] VITALS: BMI 21.6
== END 2024-09-05 12:55 ==
LOC: SDS 06:30
PROVIDERS: ATTENDING PHYSICIAN Internal Medicine Gastroenterology
DX: K22.70 Barrett's esophagus without dysplasia (principal); K44.9 Diaphragmatic hernia without obstruction or gangrene
CPT/HCPCS: 43239; 88305